=== PATIENT | male | born 1965 | race Caucasian/White ===

== ENCOUNTER 2023-02-12 04:21 | Emergency (ER) | payer BC, SELFPAY ==
[2023-02-12 04:21] VITALS: BP 147/81; PULSE 56; RESP 18; TEMP 36.6; O2SAT 96
--- NOTE | 2023-02-12 04:29 | CT_ITS ---
STUDY: CT BRAIN WITHOUT CONTRAST REASON FOR EXAM: Male, 57 years old. Dizziness RADIATION DOSAGE (If Supplied By Facility): CTDIvol = ( 44.99 ) mGy, DLP = ( 779.24 ) mGycm TECHNIQUE: Transaxial CT imaging of the brain was performed without administration of intravenous contrast material. Individualized dose optimization techniques were used for this CT. COMPARISON: No relevant priors. FINDINGS: Normal soft tissue structures. Normal calvarium. Within the right frontal lobe there is a small focus of calcification that may represent inner table calcification versus a small meningioma measuring 3.5 mm. There is mild cerebral atrophy with widening of the extra-axial spaces and ventricular dilatation. Normal white matter tracts of the cerebral hemispheres. Normal basal ganglia and thalami. Normal brainstem. Normal cerebellum. There is no intracranial hemorrhage. There are no findings of an acute ischemic infarction. Normal visualized paranasal sinuses. CT/Brain/Head without Contrast IMPRESSION: Small 3.5 mm right-sided meningioma versus nonspecific calcification. No visualized acute hemorrhage infarct or edema. Electronically Signed: Nancie Sky MD at 5:43 EST ,
--- NOTE | 2023-02-12 04:29 | EKG12_ITS ---
Test Reason : DYSRHYTHMIA Blood Pressure : / mmHG Vent. Rate : 050 BPM Atrial Rate : 050 BPM P-R Int : 160 ms QRS Dur : 094 ms QT Int : 448 ms P-R-T Axes : 041 023 025 degrees QTc Int : 408 ms Sinus bradycardia Otherwise normal ECG Confirmed by JR OSORIO, DAMIAN ([id number]), makeup editor CHERI CALDERON ([id number]) on 02/18/2023 7:02:06 AM Referred By: Confirmed By:LATHA NORRIS MD
--- NOTE | 2023-02-12 04:30 | EDS_ITS ---
HPI History of Present Illness Chief Complaint: Dizziness Detail of Chief Complaint: Dizziness Informant: patient Narrative Narrative: Patient presents emergency department complaint of dizziness that started when he rolled over in bed this morning. Sudden onset. Feels like things are spinning around and round. Had some slight nausea but no vomiting. He is never had this happen before. He denies any falls or head injuries. He denies headache. Denies recent illness. [facility] Medical History (Updated 02/12/23 @ 05:[address] Humza Robles, ) Hypertension Home Medications albuterol 90 mcg/actuation aerosol inhaler mcg inhalation PRN sob 02/12/23 [History Last Taken Unknown] amlodipine 10 mg tablet 10 mg PO DAILY 02/12/23 [History Last Taken Unknown] fluticasone propionate 50 mcg/actuation nasal spray,suspension (Allergy Relief (fluticasone)) 2 spray intranasal DAILY 02/12/23 [History Last Taken Unknown] hydrochlorothiazide 12.5 mg tablet 12.5 mg PO QODAY 02/12/23 [History Last Taken Unknown] meclizine 25 mg tablet 25 mg PO TID PRN dizziness #14 tabs 02/12/23 [Rx Last Taken Unknown] meloxicam 15 mg tablet 15 mg PO DAILY 02/12/23 [History Last Taken Unknown] omeprazole 20 mg capsule,delayed release 20 mg PO DAILY 02/12/23 [History Last Taken Unknown] ondansetron 4 mg disintegrating tablet 4 mg PO Q8H PRN PRN Nausea #10 tabs 02/12/23 [Rx Last Taken Unknown] Allergy/AdvReac Type Severity Reaction Status Date / Time No Known Allergies Allergy Verified 02/12/23 04:24 Social History Smoking Status: Never smoker ROS ROS ED Review of Systems ROS Unobtainable: other Constitutional Constitutional ED: Reports lethargy; Denies chills, fever(s), sweats or weight loss Eyes Eyes: Denies blurry vision, change in vision or diplopia ENT ENT ED: Denies rhinorrhea or sore throat Cardiovascular Cardiovascular: Denies chest pain, orthopnea or racing heartbeat Respiratory/Chest Respiratory/Chest: Denies cough, dyspnea, dyspnea on exertion, orthopnea or sputum Gastrointestinal Gastrointestinal: Denies abdominal pain, diarrhea, nausea or vomiting Genitourinary Genitourinary ED: Denies dysuria, hematuria or urinary frequency Musculoskeletal Musculoskeletal: Denies arthralgias, back pain, myalgias or neck pain Integumentary Denies abscess, Abrasions or rash Neurologic Neurologic: Reports other Details: Dizziness/vertigo ; Denies headache(s) or weakness Psychiatric Psychiatric: Denies anxiety, depression or suicidal thoughts Endocrine Endocrinology: Denies polydipsia, polyphagia or polyuria Hematologic/Lymphatic Hematologic/Lymphatic: Denies easy bleeding, easy bruising or lymphadenopathy Allergic/Immunologic Allergic/Immunologic ED: Denies mouth swelling, tongue swelling or urticaria EXAM Physical Exam Const Vital Signs: 02/12/23 04:21 02/12/23 04:49 02/12/23 06:00 Temperature 97.9 F Temperature Source Temporal Pulse Rate 56 L 50 L Pulse Rate [Lying] 53 L Pulse Rate [Standing (for 1 minute prior to obtaining)] 73 Respiratory Rate 18 18 Blood Pressure 147/81 H 127/85 H Blood Pressure [Lying] 123/75 H Blood Pressure [Sitting (for 1 minute prior to obtaining)] 132/83 H Blood Pressure [Standing (for 1 minute prior to obtaining)] 132/79 H Blood Pressure Mean 103 99 Blood Pressure Mean [Lying] 91 Blood Pressure Mean [Sitting (for 1 minute prior to obtaining)] 99 Blood Pressure Mean [Standing (for 1 minute prior to obtaining)] 96 Pulse Ox 96 95 Oxygen Delivery Method Room Air Positive well nourished and well developed General Appearance ED: well developed and NAD HEENT Reports TM's clear and moist mucous membranes normocephalic and atraumatic; Negative for trauma or tenderness Tympanic Membrane ED: Yes TM's clear Eyes PERRL and EOMs intact bilaterally General Eye ED: Negative for pale conjunctiva or scleral icterus Neck no lymphadenopathy, supple and no JVD General: Negative for tenderness Chest Wall inspection of chest normal and palpation of chest normal Chest: Negative for tenderness Resp normal respiratory effort and clear to auscultation bilaterally Effort and Inspection: Negative for respiratory distress or pain with movement Auscultation: Negative for rhonchi, wheezes or diminished lung sounds Cardio regular rate, regular rhythm, S1 normal heart sound, S2 normal heart sound and no murmurs Peripheral Pulses: pulses 2+ throughout GI normal to inspection, nondistended, normoactive bowel sounds, soft to palpation, non-tender, non-distended and no masses Back/Spine no CVA tenderness and no thoracic nor lumbar tenderness Extremity normal to inspection General Extremety ED: Negative for edema General Extremity: Negative for edema Neuro oriented x3, CN's II-XII intact bilaterally, no sensory deficits noted and gait normal Neuro Narrative: Hallpike maneuver performed and no nystagmus was elicited and could not reproduce his symptoms other than when he sat back up. Sensorium / Orientation: awake, alert, oriented to person, oriented to place and oriented to time Motor Exam: strength 5/5 throughout and strength abnormal Psych mental status grossly normal Skin no rashes or lesions noted and no wounds MDM MDM MDM Narrative Medical decision making narrative: Patient presents with dizziness that likely represents vertigo given sudden onset and nausea associated with it. Although clinically do not appreciate nystagmus with Hallpike maneuver. Given his age I will obtain a CT scan of the brain without contrast to evaluate further this was done and was normal. Patient had a CBC with differential that showed white count 5.4 with hemoglobin of 15.8 and platelet count of 200. Chemistries unremarkable. EKG obtained on arrival shows sinus rhythm with a rate of 50 bpm with no acute ST segment changes. While in department he did receive Antivert 25 mg p.o. and Zofran 4 mg IV and he had good symptom relief with this. Orthostatic vital signs were negative. At this point I suspect likely benign positional vertigo. Will write a prescription for Zofran and Antivert. Advised to follow-up with ENT as he does describe tinnitus as well as hearing loss and suspect possibility of M?ni?re's disease. Lab Data Attestation: I reviewed the patient's lab results. Labs: Laboratory Results - last 24 hr 02/12/23 04:35 WBC 5.4 RBC 5.05 Hgb 15.8 Hct 45.6 MCV 90.3 MCH 31.3 MCHC 34.6 RDW Std Deviation 39.8 RDW Coeff of Katalina 12.3 Plt Count 200 MPV 10.2 Immature Gran % (Auto) 0.200 Neut % (Auto) 49.0 Lymph % (Auto) 33.1 [place] % (Auto) 12.4 H Eos % (Auto) 4.4 Baso % (Auto) 0.9 Absolute Neuts (auto) 2.7 Absolute Lymphs (auto) 1.79 Nucleated RBC % 0 Sodium 141 Potassium 3.5 Chloride 106 Carbon Dioxide 29.0 Anion Gap 6 BUN 16 Creatinine 0.96 Estim Creat Clear Calc 79.37 Est GFR (MDRD) Af Amer 104 Est GFR (MDRD) Non-Af 86 BUN/Creatinine Ratio 16.7 Glucose 109 H Calcium 8.8 Radiography Diagnostic Testing: Clinical Impression(s) from Imaging Studies Brain CT 02/12/23 04:29 IMPRESSION: Small 3.5 mm right-sided meningioma versus nonspecific calcification. No visualized acute hemorrhage infarct or edema. Electronically Signed: Nancie Sky MD at 5:43 EST , EKG Initial EKG: Attestation: I personally reviewed and interpreted this EKG as follows: Comments: Sinus rhythm with rate of 50 bpm with no acute ST segment changes Discharge Plan Triage Chief Complaint: Dizziness ED Provider: Humza Robles Dx/Rx/DC Orders Clinical Impression: Benign paroxysmal positional vertigo Instructions: ED BPV Vertigo Prescriptions: New ondansetron [ondansetron] 4 mg tablet,disintegrating 4 mg PO Q8H PRN PRN (Reason: Nausea) Qty: 10 0RF meclizine 25 mg tablet 25 mg PO TID PRN (Reason: dizziness) Qty: 14 0RF No Action meloxicam 15 mg tablet 15 mg PO DAILY omeprazole 20 mg capsule,delayed release(DR/EC) 20 mg PO DAILY hydrochlorothiazide 12.5 mg tablet 12.5 mg PO QODAY amlodipine 10 mg tablet 10 mg PO DAILY fluticasone propionate [Allergy Relief (fluticasone)] 50 mcg/actuation spray,suspension 2 spray intranasal DAILY Rx Instructions: administer into each nostril albuterol 90 mcg/actuation aerosol inhalation PRN (Reason: sob) Primary Care Provider: Eddie Leiva Referrals: Srinivasan Granados MD [Med Staff - Active Staff] - 3-5 Days Alexey Rodarte MD [Non-Staff] - Disposition Disposition: Home, Self Care Discharge Date/Time: 02/12/23 06:02
[2023-02-12] MEDS: Ondansetron 4 MG/2 ML Vial IV (04:41)
[2023-02-12 04:42] LABS: Absolute Lymphocyte Count 1.79 X10^3/uL (0.83-4.51); Absolute Neutrophil Count 2.7 X10^3/uL (2.0-7.7); Basophil# 0.05 X10^3/uL; Basophil% 0.9 % (0-1); Eosinophil# 0.24 X10^3/uL; Eosinophils% 4.4 % (0-5); Hematocrit 45.6 % (40-54); Hemoglobin 15.8 g/dL (13.0-16.5); Lymphocyte # 1.79 X10^3/ul (0.83-4.51); Lymphocyte % 33.1 % (19-41); Mean Corp Hgb Conc 34.6 g/dL (32-36); Mean Corpuscular Hgb 31.3 pg (27.0-32.0); Mean Corpuscular Volume 90.3 fL (80-94); Mean Platelet Vol. 10.2 fl (6.2-12.0); Monocyte# 0.67 X10^3/uL; Monocyte% 12.4 % (0-10); NRBC Flagged by Analyzer 0 % (0-5); Neutrophil # 2.65 X10^3/uL (2.7-7.7); Platelet Count 200 K/mm3 (150-450); RBC Distribution Width CV 12.3 % (11.6-14.6); RBC Distribution Width SD 39.8 fl (35.1-43.9); Red Blood Count 5.05 M/mm3 (4.6-6.2); White Blood Count 5.4 K/mm3 (4.4-11.0)
[2023-02-12] MEDS: Meclizine HCl 25 MG Tablet PO (04:42)
[2023-02-12] MEDS: 0.9% Normal Saline (1000mL) 1,000 ML 150 ML IV (04:47)
[2023-02-12 04:49] VITALS: BP 123/75; BP 132/79; BP 132/83; PULSE 53; PULSE 73
[2023-02-12 04:56] LABS: Anion Gap 6 (5-15); BUN 16 mg/dL (7-18); BUN/Creat Ratio 16.7 RATIO (10-20); Calcium,Total 8.8 mg/dL (8.5-10.1); Chloride 106 mmol/L (98-107); Creatinine, Serum 0.96 mg/dL (0.70-1.30); EST Glomerular Filtration Rate 86 mL/min (>60); Est Glom Filt Rate - Afr Amer 104 mL/min (>60); Estimated Creatinine Clearance 79.37 ml/min; Glucose 109 mg/dL (74-106); Potassium 3.5 mmol/L (3.5-5.1); Sodium Level 141 mmol/L (136-145)
[2023-02-12 06:00] VITALS: BP 127/85; PULSE 50; RESP 18; O2SAT 95
== END 2023-02-12 06:02 | disposition home or self-care (01) ==
PROVIDERS: Emergency Provider Emergency Medicine; PCP Family Medicine; Visit Provider Emergency Medicine
DX: H81.10 Benign paroxysmal vertigo, unspecified ear (principal); R11.0 Nausea; I10 Essential (primary) hypertension; Z79.899 Other long term (current) drug therapy
CPT/HCPCS: 70450; 80048; 85025; 93005; 96361; 96374; 99283; J7030; A4216; J2405

== ENCOUNTER → 2023-06-25 | Outpatient (CLI) | payer BC, SELFPAY ==
[2023-06-25 13:08] LABS: Thyroid Stim Hormone (TSH) 1.32 uIU/mL (0.358-3.74)
== END | disposition home or self-care (01) ==
LOC: LAB 10:43
PROVIDERS: PCP Family Medicine; Referring Provider Internal Medicine Cardiovascular Disease; Visit Provider Internal Medicine Cardiovascular Disease
DX: I47.10 Supraventricular tachycardia, unspecified (principal); R00.1 Bradycardia, unspecified; I10 Essential (primary) hypertension
CPT/HCPCS: 36415; 84443

== ENCOUNTER → 2023-07-05 | Outpatient (CLI) | payer BC, SELFPAY ==
--- NOTE | 2023-07-08 08:55 | STRESSREP ---
Stress Test Report Date: 07/05/2023 Procedure: Exercise tolerance test Indications: SVT Consent: Per the patient Procedure: The patient exercised on a Darnell protocol for 6 minutes achieving a peak heart rate of 123 bpm (75% predicted maximal heart rate) with a peak blood pressure 178/82 mmHg and a peak MET capacity of approximately 7.0 MET's. The baseline ECG demonstrated sinus rhythm. The peak exercise ECG demonstrated no diagnostic ischemic changes. There were no cardiac dysrhythmias pretest, during exercise, or recovery. The functional capacity was considered average. The patient had no complaints of chest discomfort during exercise or recovery. The examination was discontinued secondary to dyspnea. Impression: 1. Technically adequate exercise tolerance test. 75% of maximal age-predicted heart rate achieved. 2. Peak exercise ECG with no ischemic changes 3. There were no cardiac dysrhythmias during exercise or recovery This note was generated with [email or web address] software. It may contain incorrect words, spelling, and punctuation that were not noted in checking the note before signing.
== END | disposition home or self-care (01) ==
LOC: CVS 09:39
PROVIDERS: PCP Family Medicine; Referring Provider Internal Medicine Cardiovascular Disease; Visit Provider Internal Medicine Cardiovascular Disease
DX: I47.10 Supraventricular tachycardia, unspecified (principal); R00.1 Bradycardia, unspecified; I10 Essential (primary) hypertension; R06.00 Dyspnea, unspecified
CPT/HCPCS: 93017